=== PATIENT | female | born 1995 | race Caucasian/White ===

== ENCOUNTER → 2021-12-15 | Outpatient (CLI) | payer BC | END | disposition home or self-care (01) | LOC: LAB 14:46 | PROVIDERS: ATTEND Nurse Practitioner Women's Health | DX: Z11.59 Encounter for screening for other viral diseases (principal); Z20.2 Contact with and (suspected) exposure to infections with a predominantly sexual mode of transmission | CPT/HCPCS: 36415; 86592; 86703; 86803; 87340 ==